=== PATIENT | male | born 1955 | race African-American/Black ===

== ENCOUNTER 2020-01-15 18:30 | Observation (INO) | payer OTHER ==
[~2020-01-15] VITALS: Ht 190.5 cm; Wt 81.2 kg
--- NOTE | 2020-01-15 18:31 | NUR ---
REC'D PT IN RM 10 FROM THE FRONT OF THE HOSPITAL FOR C/O CHEST PAIN. PLACED ON THE MONITOR AND IN A GOWN. EKG DONE AND IV PLACED.
[2020-01-15 18:51] LABS: INR 0.95; PROTHROMBIN TIME 13.2 seconds (11.9-14.5)
[2020-01-15 18:52] LABS: PARTIAL THROMBOPLASTIN TIME 26.8 seconds (23.8-35.5)
[2020-01-15 18:59] LABS: BASOPHILS # (AUTO) 0.1 (0.0-0.1); BASOPHILS % 0.6 % (0.0-1.0); EOSINOPHILS # (AUTO) 0.1 (0.0-0.4); EOSINOPHILS % 1.6 % (0.0-6.0); HEMATOCRIT 41.3 % (38.2-49.6); HEMOGLOBIN 13.6 g/dL (14.0-18.0); LYMPHOCYTES # (AUTO) 1.1 (1.0-3.2); LYMPHOCYTES % 13.7 % (18.0-39.1); MEAN CORPUSCULAR HEMOGLOBIN 31.4 pg (28-32); MEAN CORPUSCULAR HGB CONC 32.9 g/dL (31-35); MEAN CORPUSCULAR VOLUME 95.4 fL (81-99); MONOCYTES # (AUTO) 0.8 (0.2-0.8); MONOCYTES % 9.6 % (4.4-11.3); NEUTROPHILS % 74.1 % (38.7-80.0); PLATELET COUNT 221 x10e3/uL (140-360); RED BLOOD COUNT 4.33 x10e6/uL (4.3-5.7); RED CELL DISTRIBUTION WIDTH 12.6 % (11.7-14.4)
[2020-01-15 19:00] LABS: ALANINE AMINOTRANSFERASE 30 IU/L (0-55); ALBUMIN 3.8 g/dL (3.5-5.0); ALKALINE PHOSPHATASE 75 IU/L (40-150); ANION GAP 15.8 mmol/L (8-16); BLOOD UREA NITROGEN 14 mg/dL (7-26); BUN/CREATININE RATIO 11 (6-25); CALCIUM 9.8 mg/dL (8.4-10.2); CARBON DIOXIDE 28 mmol/L (22-29); CHLORIDE 102 mmol/L (98-107); CREATINE KINASE 256 IU/L (30-200); CREATININE, SERUM 1.31 mg/dL (0.72-1.25); EST GLOMERULAR FILTRATION RATE 55 ML/MIN (60-); GLUCOSE 99 mg/dL (74-118); POTASSIUM 3.8 mmol/L (3.5-5.1); SODIUM 142 mmol/L (136-145)
[2020-01-15] MEDS ORDERED: SODIUM CHLORIDE 0.9% 1000ML 1,000 ML ONE (19:22)
[2020-01-15] MEDS ORDERED: NITROGLYCERIN 0.4 MG SUBL SL PRN (19:45)
[2020-01-15] MEDS ORDERED: ASPIRIN 81 MG CHEW TAB PO ONE (19:45)
--- NOTE | 2020-01-15 19:57 | Diagnostic Imaging Report ---
EXAMINATION: CHEST SINGLE (PORTABLE) INDICATION: Chest pain COMPARISON: None FINDINGS: TUBES and LINES: None. LUNGS: Normal lung volumes. Lungs are clear. No consolidations. PLEURA: No pleural effusion or pneumothorax. HEART AND MEDIASTINUM: The cardiomediastinal silhouette is unremarkable. BONES AND SOFT TISSUES: No acute osseous lesion. Soft tissues are unremarkable. UPPER ABDOMEN: No free air under the diaphragm. IMPRESSION: No acute thoracic radiographic abnormality. Signed by: Ed Shea DO on 01/15/2020 7:55 PM
--- NOTE | 2020-01-15 20:13 | NUR ---
PT. REPORTED NO HOME MEDS
--- OUTSIDE RECORDS SUMMARY | 2020-01-15 20:55 | XMS REPORT ---
Author Author [facility] Address Unknown Phone Unavailable Care Team Providers Care Associate Sales Manager Name Role Phone Lorenzo LOZA Unavailable Unavailable Problems This patient has no known problems. Allergies, Adverse Reactions, Alerts This patient has no known allergies or adverse reactions. Medications This patient has no known medications. Results Test Description Test Time Test Comments Text Results Atomic Results Result Comments CHEST SINGLE (PORTABLE) 2020-01-15 19:54:00 [facility] [address] [address] Patient Name: GINNY BARNES JR MR #: [id number] : 1955 Age/Sex: 64/M Req #: [id number] Adm Physician: Ordered by: THAI LOZA MD Report #: [id number] Location: ER Room/Bed: Procedure: [id number] DX/CHEST SINGLE (PORTABLE) Exam Date: 01/15/20 Exam Time: 1909 REPORT STATUS: Signed EXAMINATION: CHEST SINGLE (PORTABLE) IND ICATION: Chest pain COMPARISON: None FINDINGS: TUBES and LINES: None. LUNGS: Normal lung volumes. Lungs are clear. No consolidations. PLEURA: No pleural effusion or pneumothorax. HEART AND MEDIASTINUM: The cardiomediastinal silhouette is unremarkable. BONES AND SOFT TISSUES: No acute osseous lesion. Soft tissues are unremarkable. UPPER ABDOMEN: No free air under the diaphragm. IMPRESSION: No acute thoracic radiographic abnormality. Signed by: Ed Shea DO on 01/15/2020 7:55 PM Dictated By: ED SHEA DO 53 Transcribed By: EDGAR on 01/15/201954 COPY TO: THAI LOZA MD
[2020-01-16 00:17] VITALS: BP 134/75
--- NOTE | 2020-01-16 00:17 | NUR ---
PT RECEIVED FROM ER VIA STRETCHER INTO ROOM 102. PT ALERT AND ORIENTED X3. TELE ON PT. DENIES CHEST PAIN. RESPIRATIONS EVEN AND UNLABORED. ORIENTED TO ROOM AND PMC. CALL LIGHT WITHIN REACH. BED IN LOW POSITION.
[2020-01-16 00:23] VITALS: BP 134/75
[2020-01-16 04:00] VITALS: BP 113/62
[2020-01-16 06:44] LABS: CREATINE KINASE 189 IU/L (30-200)
[2020-01-16 07:53] VITALS: BP 116/58
[2020-01-16] MEDS ORDERED: ASPIRIN 325 MG TAB EC PO SCH (09:00)
[2020-01-16 09:06] VITALS: BP 116/58
--- NOTE | 2020-01-16 09:07 | NUR ---
H&P cc: cp HPI: 64yoM, PCP none, developed cp in substernal region, described as tightness. No sob/dizziness. Started upon awaking. PMH: none PShx: hernia Allergies; see emr Fh/HS; single; no cigs meds; see MAR ROS: no f/c/s/N/V/D/CASTILLO/dizziness/skin rash/back pain/focal limb weakness v/s; revd PE tired appearing anicteric ns1s2 good bs soft nt nd no e/t skin dry n. affect labs/meds revd A/P 64yoM Atypical CP- trend enzymes; LDL <160 HTN- treat FIFI- IVF Prop: lovenox; pepcid dispo: José Miguel Hirsch MD, PhD>
[2020-01-16] MEDS ORDERED: ACETAMINOPHEN 325 MG TAB PO PRN (09:15)
[2020-01-16] MEDS ORDERED: DOCUSATE SODIUM 100 MG CAP PO PRN (09:15)
[2020-01-16] MEDS ORDERED: ONDANSETRON HCL INJ 2MG/ML 2ML 2 MG/ML VIAL IV PRN (09:15)
[2020-01-16] MEDS ORDERED: ZOLPIDEM TARTRATE 5 MG TAB PO PRN (09:15)
[2020-01-16 12:05] VITALS: BP 127/58
[2020-01-16 12:50] LABS: CREATINE KINASE 172 IU/L (30-200)
[2020-01-16] MEDS ORDERED: ASPIR 8181 MG PO (14:05)
[2020-01-16] MEDS ORDERED: FAMOTIDINE20 MG PO (14:05)
[2020-01-16] MEDS ORDERED: METOPROLOL TART25 MG PO (14:06)
[2020-01-16] MEDS ORDERED: ATORVASTATIN CA10 MG PO (14:06)
[2020-01-16] MEDS ORDERED: FAMOTIDINE 20 MG TAB PO SCH (16:30)
--- NOTE | 2020-01-16 16:40 | NUR ---
Patient discharged home verbalized understanding of discharge instructions.
[2020-01-16] MEDS ORDERED: ENOXAPARIN SOD INJ 40 MG/0.4 ML SYR SC SCH (17:00)
--- NOTE | 2020-01-19 08:29 | NUR ---
D/C summary Principal dx: Atypical CP Secondary DxA/P 64yoM HTN- treat FIFI- IVF Prop: lovenox; pepcid dispo: d/c home stable f/u 1 week d/c>35mins José Miguel Hirsch MD, PhD>
== END 2020-01-16 16:30 | disposition home or self-care (01) ==
LOC: ER 18:30 → ERHOLD 19:38 → MED/SURG 01-16 00:22
PROVIDERS: ADMIT Internal Medicine; ATTEND Internal Medicine
DX: R07.89 Other chest pain (principal); R94.31 Abnormal electrocardiogram [ECG] [EKG]; I10 Essential (primary) hypertension; N17.9 Acute kidney failure, unspecified; Z82.49 Family history of ischemic heart disease and other diseases of the circulatory system
CPT/HCPCS: 36415 ×2; 71045; 80053; 80061; 82550 ×2; 82553 ×2; 84484 ×2; 85025; 85610; 85730; 93005; 99284; G0378 ×2; J7030